=== PATIENT | male | born 1975 | race Caucasian/White ===

== ENCOUNTER → 2016-12-22 | Outpatient (CLI) | payer BC ==
--- NOTE | 2016-12-22 15:23 | XR ---
EXAMINATION TYPE: XR chest 2V DATE OF EXAM: 12/22/2016 COMPARISON: NONE HISTORY: Cough TECHNIQUE: Frontal and lateral views of the chest are obtained. FINDINGS: There is no focal air space opacity, pleural effusion, or pneumothorax seen. The cardiac silhouette size is within normal limits. There is bronchial wall thickening. Strand-like densities a re present at the left costophrenic sulcus. The osseous structures are intact. IMPRESSION: Correlate for possible atelectasis, bronchitis, follow-up as indicated.
== END ==
LOC: RADXRMAIN 14:58
PROVIDERS: ATTEND Physician Assistant
DX: R05 Cough (principal)
CPT/HCPCS: 71020

== ENCOUNTER 2017-12-19 13:50 | Emergency (ER) | payer BC ==
[2017-12-19 14:29] VITALS: BP 127/79; PULSE 66; RESP 18; TEMP 98.2
--- NOTE | 2017-12-19 15:25 | XR ---
EXAMINATION TYPE: XR knee complete RT DATE OF EXAM: 12/19/2017 COMPARISON: NONE HISTORY: Pain TECHNIQUE: Four views are submitted. FINDINGS: Mild narrowing the joint spaces.. Osseous structures are intact. No acute fracture seen. IMPRESSION: 1. No acute fracture or dislocation.
--- NOTE | 2017-12-19 15:59 | US ---
EXAMINATION TYPE: US venous doppler duplex LE RT DATE OF EXAM: 12/19/2017 3:36 PM COMPARISON: NONE CLINICAL HISTORY: Pain. SIDE PERFORMED: Right TECHNIQUE: The lower extremity deep venous system is examined utilizing real time linear array sonog joy with graded compression, doppler sonography and color-flow sonography. VESSELS IMAGED: External Iliac Vein (EIV) Common Femoral Vein Deep Femoral Vein Greater Saphenous Vein * Femoral Vein Popliteal Vein Small Saphenous Vein * Proximal Calf Veins (* superficial vessels) Right Leg: Negative for DVT Patient of large body habitus. IMPRESSION: 1. No diagnostic evidence of DVT as visualized.
--- NOTE | 2017-12-19 16:11 | ED ---
Extremity Problem HPI - General Chief complaint: Extremity Problem,Nontraumatic Stated complaint: knee pain/ankle bruising Time Seen by Provider: 12/19/17 14:40 Source: patient Mode of arrival: ambulatory Limitations: no limitations - History of Present Illness Initial comments: 42-year-old male patient presents to the emergency department today for evaluation of right knee pain. Patient states that about a week ago he was playing with his kids and he was kneeling on the floor when he felt a pop in his knee. Patient states that his knee has been bothering him since he has had pain radiating down in the medial aspect of the lower leg. Patient states that he has developed some ecchymosis to the medioinferior aspect of the right knee. States that over the last couple of days the ecchymosis has spread to his medial ankle and foot. Patient states he is having some right lower leg swelling. He denies any history of injury to the knee. Denies any numbness or tingling in the leg or foot. Denies any difficulty with range of motion. Denies any joint redness, fever, or chills. Patient denies any recent rash, shortness breath, chest pain, abdominal pain, nausea, vomiting, diarrhea, constipation, back pain, numbness, tingling, dizziness, weakness, hematuria, dysuria, urinary urgency, urinary frequency, headache, visual changes, or any other complaints. Patient denies any use of anticoagulant medications or history of bleeding disorder. - Related Data Home Medications Medication Instructions Recorded Confirmed No Known Home Medications 12/19/17 12/19/17 Allergies Allergy/AdvReac Type Severity Reaction Status Date / Time Tetanus Vaccines and Toxoid Allergy Anaphylaxis Verified 12/19/17 15:04 Review of Systems ROS Statement: Those systems with pertinent positive or pertinent negative responses have been documented in the HPI. ROS Other: All systems not noted in ROS Statement are negative. Past Medical History Past Medical History: Hyperlipidemia History of Any Multi-Drug Resistant Organisms: None Reported Past Surgical History: Tonsillectomy Past Psychological History: No Psychological Hx Reported Smoking Status: Former smoker Past Alcohol Use History: None Reported Past Drug Use History: None Reported General Exam Limitations: no limitations General appearance: alert, in no apparent distress, other (This is a well- developed, well-nourished adult male patient in no acute distress. Vital signs upon presentation are temperature 98.2F, pulse 66, respirations 18, blood pressure 127/79, pulse ox 98% on room air.) Eye exam: Present: normal appearance, PERRL, EOMI. Absent: scleral icterus, conjunctival injection, periorbital swelling ENT exam: Present: normal exam, normal oropharynx, mucous membranes moist Respiratory exam: Present: normal lung sounds bilaterally. Absent: respiratory distress, wheezes, rales, rhonchi, stridor Cardiovascular Exam: Present: regular rate, normal rhythm, normal heart sounds. Absent: systolic murmur, diastolic murmur, rubs, gallop, clicks Extremities exam: Present: full ROM (Patient has full flexion and extension of the right knee.), tenderness (Patient has some tenderness to the medial inferior aspect of the left knee), normal capillary refill, other (Patient has a soft tissue swelling and ecchymosis noted to the left proximal breen, left medial ankle and foot. Skin is otherwise pink, warm, and dry. Cap refills less than 3 seconds. Patient has no pain with valgus or varus maneuvers.). Absent: normal inspection, pedal edema, joint swelling, calf tenderness Neurological exam: Present: alert, oriented X3, CN II-XII intact Psychiatric exam: Present: normal affect, normal mood Skin exam: Present: warm, dry, intact, normal color. Absent: rash Course Vital Signs 12/19/17 14:26 Temperature 98.2 F Pulse Rate 66 Respiratory 18 Rate Blood Pressure 127/79 O2 Sat by Pulse 98 Oximetry Medical Decision Making - Medical Decision Making 42-year-old male patient presents to the emergency department today for evaluation of right knee pain and right leg ecchymosis. Physical examination did reveal some ecchymosis to the medial aspect of the knee, ankle and foot. Patient had full range of motion without pain or limitation to the right knee. Neurovascular status was intact. X-ray was negative for any acute fractures or dislocations. Ultrasound was negative for any evidence of DVT. Did discuss findings and results with the patient. We did discuss possibility of vessel injury as a cause for the ecchymosis as well as tendon injury as a cause for the knee pain. He is instructed to follow-up with orthopedics for further evaluation. Return parameters discussed in detail. He verbalizes understanding and agrees with this plan. - Radiology Data Radiology results: report reviewed, image reviewed Ultrasound venous Doppler duplex of the right lower extremity was obtained. Report was reviewed in its entirety. Impression by Dr. Ruiz shows no evidence for DVT. 4 view x-ray of the right knee are obtained. Report was reviewed in its entirety. Impression by Dr. Ruiz shows no acute fracture or dislocation. Disposition Clinical Impression: Right knee pain, Superficial bruising of lower leg Disposition: HOME SELF-CARE Condition: Good Instructions: Knee Pain (ED) Additional Instructions: Keep right leg elevated. Follow-up with orthopedic physician for further evaluation of your knee pain. Return here immediately for any new, worsening, or concerning symptoms. Is patient prescribed a controlled substance at d/c from ED?: No Referrals: Matt Monzon MD [Primary Care Provider] - 1-2 days Mynor Aleman MD [STAFF PHYSICIAN] - 1-2 days Time of Disposition: 16:11
== END 2017-12-19 16:33 | disposition home or self-care (01) ==
LOC: EC 13:50
DX: M79.81 Nontraumatic hematoma of soft tissue (principal); M25.561 Pain in right knee; Z87.891 Personal history of nicotine dependence; Z88.7 Allergy status to serum and vaccine
CPT/HCPCS: 99284